=== PATIENT | male | born 1940 | race Caucasian/White ===

== ENCOUNTER → 2017-08-10 12:48 | Outpatient (CLI) | payer MEDICARE, OTHER, SELFPAY ==
[2017-08-10 13:15] LABS: 585 Gram Check PASS; Pulse 53; Zero Check Sebra Scale PASS
[2017-08-10 13:16] LABS: Amount Collected in g 585; Dizziness NO; Postdiastolic BP 65; Postsystolic BP 105; Prediastolic 65; Presystolic 124; Site of phlebotomy RIGHT AC; Swelling NO; Therapeutic Phleb Comment NO COMMENT
== END ==
PROVIDERS: PCP Family Medicine; Visit Provider Family Medicine
DX: E83.110 Hereditary hemochromatosis (principal)
CPT/HCPCS: 99195

== ENCOUNTER → 2020-06-20 13:11 | Outpatient (CLI) | payer MEDICARE, OTHER, SELFPAY ==
[2020-06-20 20:18] LABS: HEMOLYSIS < 15 (0-50); Iron 133 ug/dL (49-181)
[2020-06-20 20:31] LABS: Percent Iron Saturation 53 % (20-50); Total Iron Binding Capacity 253 ug/dL (261-462); Transferrin 209 mg/dL (206-381)
[2020-06-20 20:38] LABS: Add Manual Diff / Slide Review NO; Basophils Absolute Auto 0 /uL (0-100); Basophils Percent Auto 0.4 % (0-2); Eosinophils Absolute Auto 400 /uL (0-450); Eosinophils Percent Auto 4.8 % (2-4); Hematocrit 39.9 % (41-53); Hemoglobin 13.3 g/dL (13.5-17.5); Lymphocytes Absolute Auto 1200 /uL (1100-4500); Lymphocytes Percent Auto 15.8 % (25-40); Mean Corpuscular HGB Conc 33.2 % (30-36); Mean Corpuscular Hemoglobin 31.4 PG (26-34); Mean Corpuscular Volume 94.4 fL (80-100); Monocytes Absolute Auto 700 /uL (0-900); Monocytes Percent Auto 9.2 % (3-14); Neutrophils Absolute Auto 5100 /uL (1500-7000); Neutrophils Percent Auto 69.8 % (50-75); Platelet Count 223 X10^3/uL (150-400); Red Blood Cell Count 4.23 X10^6/uL (4.5-5.9); Red Cell Distribution Width 13.4 % (11.6-14.8); White Blood Cell Count 7.4 X10^3/uL (4.5-11.0)
[2020-06-20 20:55] LABS: Ferritin 33 ng/mL (18-464)
== END ==
PROVIDERS: PCP Family Medicine; Visit Provider Family Medicine
DX: E83.110 Hereditary hemochromatosis (principal); G47.00 Insomnia, unspecified
CPT/HCPCS: 82728; 83540; 83550; 85025

== ENCOUNTER → 2020-07-29 11:35 | Outpatient (CLI) | payer MEDICARE, OTHER, SELFPAY ==
[2020-07-29 21:14] LABS: Add Manual Diff / Slide Review NO; Basophils Absolute Auto 500 /uL (0-100); Basophils Percent Auto 6.1 % (0-2); Eosinophils Absolute Auto 500 /uL (0-450); Eosinophils Percent Auto 6.7 % (2-4); Hematocrit 42.7 % (41-53); Hemoglobin 14.3 g/dL (13.5-17.5); Lymphocytes Absolute Auto 1200 /uL (1100-4500); Lymphocytes Percent Auto 15.5 % (25-40); Mean Corpuscular HGB Conc 33.5 % (30-36); Mean Corpuscular Hemoglobin 31.6 PG (26-34); Mean Corpuscular Volume 94.3 fL (80-100); Monocytes Absolute Auto 700 /uL (0-900); Monocytes Percent Auto 8.4 % (3-14); Neutrophils Absolute Auto 5000 /uL (1500-7000); Neutrophils Percent Auto 63.3 % (50-75); Platelet Count 216 X10^3/uL (150-400); Progesterone, Total 0.48 ng/mL; Red Blood Cell Count 4.53 X10^6/uL (4.5-5.9); Red Cell Distribution Width 13.8 % (11.6-14.8); White Blood Cell Count 7.8 X10^3/uL (4.5-11.0)
[2020-07-29 21:22] LABS: Estradiol, Total 37.3 pg/mL
[2020-07-29 22:11] LABS: Alanine Aminotransferase 16 IU/L (<50); Albumin 4.1 g/dL (3.5-5.0); Albumin Globulin Ratio 1.6 (1.0-2.8); Alkaline Phosphatase 73 U/L (38-126); Aspartate Aminotransferase 25 IU/L (17-59); Bilirubin Total 0.6 mg/dL (0.2-1.3); Blood Urea Nitrogen 17 mg/dL (9-20); Calcium 9.7 mg/dL (8.4-10.2); Carbon Dioxide 29 mmol/L (22-32); Chloride 102 mmol/L (98-107); Cholesterol 176 mg/dL (140-199); Estimated Glomerular Filt Rate > 60.0 mL/min (>60); Globulin 2.6 g/dL (1.7-4.1); Glucose 105 mg/dL (80-110); HDL Cholesterol 84 mg/dL (40-60); HEMOLYSIS < 15 (0-50); LDL Cholesterol Calculated 79 mg/dL (<100); Potassium 4.6 mmol/L (3.4-5.1); Sodium 136 mmol/L (137-145); Total Protein 6.7 g/dL (6.3-8.2); Triglycerides 64 mg/dL (35-150)
[2020-07-29 22:14] LABS: High Sensitivity CRP - Cardiac < 0.3 mg/L (1.0-3.0)
[2020-07-29 22:30] LABS: Vitamin D 25 Hydroxy (D3) > 126 ng/mL (30.0-100.0)
[2020-07-29 22:31] LABS: Free T3, Triiodothyronine Free 3.65 pg/mL (2.77-5.27)
[2020-07-29 22:42] LABS: Cortisol AM (Before 10AM) 6.81 ug/dL (4.46-22.7)
[2020-07-29 22:44] LABS: Thyroid Stimulating Hormone 2.42 uIU/mL (0.47-4.68)
[2020-07-29 23:00] LABS: Vitamin B12 977 pg/mL (239-931)
[2020-07-31 04:34] LABS: Homocysteine 7.4 umol/L (0.0-19.2)
[2020-07-31 04:36] LABS: Ceruloplasmin 18.5 mg/dL (16.0-31.0)
[2020-07-31 09:13] LABS: Dehydroepiandrosterone Sulfate 67.5 ug/dL (20.8-226.4)
[2020-07-31 15:43] LABS: Selenium 148 ug/L (93-198)
[2020-07-31 17:08] LABS: Folate, RBC >1422 ng/mL (>498); Hematocrit 43.6 % (37.5-51.0); Hemolysate >620.0 ng/mL (Not Estab.)
[2020-07-31 17:59] LABS: Mercury 3.4 ug/L (0.0-14.9)
[2020-08-01 01:07] LABS: Zinc 124 ug/dL (44-115)
[2020-08-01 14:11] LABS: Vitamin B1 408.3 nmol/L (66.5-200.0)
[2020-08-02 08:11] LABS: Vitamin C 1.7 mg/dL (0.4-2.0)
[2020-08-02 12:45] LABS: Vitamin B6 119.8 ug/L (5.3-46.7)
[2020-08-02 15:56] LABS: Vascular Endothelial Growth Fa 105 pg/mL (0-115)
[2020-08-03 09:46] LABS: Testosterone % Fr + Wkly bound 11.1 % (9.0-46.0); Testosterone Fr+Wkly bound 42.4 ng/dL (40.0-250.0); Testosterone, Total 382.3 ng/dL (264.0-916.0)
[2020-08-03 23:53] LABS: Magnesium, RBC 5.4 mg/dL (4.2-6.8)
[2020-08-04 02:40] LABS: Alpha-Tocopherol 24.5 mg/L (9.0-29.0)
[2020-08-05 21:07] LABS: Pregnenolone 23 ng/dL (.)
[2020-08-07 00:51] LABS: Matrix metalloprot 9 589 ng/mL (.)
[2020-08-07 20:36] LABS: Triiodothyronine T3 Reverse 21.3 ng/dL (9.2-24.1)
== END ==
PROVIDERS: PCP Family Medicine; Visit Provider Family Medicine
DX: D89.89 Other specified disorders involving the immune mechanism, not elsewhere classified (principal); E83.110 Hereditary hemochromatosis; G47.00 Insomnia, unspecified
CPT/HCPCS: 80053; 80061; 82175; 82180; 82300; 82306; 82390; 82525; 82533; 82607; 82627; 82670; 82747; 83090; 83520; 83655; 83735; 83825; 84140; 84144; 84207; 84255; 84403; 84425; 84439; 84443; 84446; 84481; 84482; 84591; 84630; 85014; 85025; 86140

== ENCOUNTER → 2020-08-22 11:17 | Outpatient (CLI) | payer MEDICARE, OTHER, SELFPAY ==
[2020-08-22 19:44] LABS: Iron 66 ug/dL (49-181)
[2020-08-22 19:55] LABS: Percent Iron Saturation 28 % (20-50); Total Iron Binding Capacity 239 ug/dL (261-462)
[2020-08-22 20:08] LABS: Add Manual Diff / Slide Review NO; Basophils Absolute Auto 200 /uL (0-100); Eosinophils Absolute Auto 600 /uL (0-450); Eosinophils Percent Auto 6.7 % (2-4); Hematocrit 39.4 % (41-53); Hemoglobin 13.2 g/dL (13.5-17.5); Lymphocytes Absolute Auto 800 /uL (1100-4500); Lymphocytes Percent Auto 8.9 % (25-40); Mean Corpuscular HGB Conc 33.6 % (30-36); Mean Corpuscular Hemoglobin 31.5 PG (26-34); Mean Corpuscular Volume 93.6 fL (80-100); Monocytes Absolute Auto 1200 /uL (0-900); Monocytes Percent Auto 13.3 % (3-14); Neutrophils Absolute Auto 6200 /uL (1500-7000); Neutrophils Percent Auto 69.1 % (50-75); Platelet Count 257 X10^3/uL (150-400); Red Blood Cell Count 4.21 X10^6/uL (4.5-5.9); Red Cell Distribution Width 13.2 % (11.6-14.8)
[2020-08-22 20:47] LABS: Ferritin 82 ng/mL (18-464)
[2020-08-26 00:55] LABS: Zinc 134 ug/dL (44-115)
== END ==
PROVIDERS: PCP Family Medicine; Referring Provider Family Medicine; Visit Provider Family Medicine
DX: E83.110 Hereditary hemochromatosis (principal)
CPT/HCPCS: 82525; 82728; 83540; 83550; 84630; 85025

== ENCOUNTER → 2020-09-06 11:04 | Outpatient (CLI) | payer MEDICARE, OTHER, SELFPAY ==
[2020-09-06 11:49] LABS: 585 Gram Check PASS; Dizziness NO; Postdiastolic BP 73; Postsystolic BP 114; Prediastolic 73; Presystolic 136; Pulse 57; Site of phlebotomy RAC; Swelling NO; Temperature 97.3; Therapeutic Phleb Comment NO COMMENT; Zero Check Sebra Scale PASS
== END ==
PROVIDERS: PCP Family Medicine; Referring Provider Family Medicine; Visit Provider Family Medicine
DX: E83.110 Hereditary hemochromatosis (principal)
CPT/HCPCS: 99195

== ENCOUNTER → 2020-10-02 11:59 | Outpatient (CLI) | payer MEDICARE, OTHER, SELFPAY ==
[2020-10-02 19:26] LABS: HEMOLYSIS < 15 (0-50); Iron 118 ug/dL (49-181)
[2020-10-02 19:28] LABS: Alanine Aminotransferase 18 IU/L (<50); Albumin 3.7 g/dL (3.5-5.0); Albumin Globulin Ratio 1.5 (1.0-2.8); Alkaline Phosphatase 76 U/L (38-126); Aspartate Aminotransferase 27 IU/L (17-59); Bilirubin Total 0.5 mg/dL (0.2-1.3); Blood Urea Nitrogen 25 mg/dL (9-20); Calcium 9.6 mg/dL (8.4-10.2); Carbon Dioxide 27 mmol/L (22-32); Chloride 105 mmol/L (98-107); Estimated Glomerular Filt Rate > 60.0 mL/min (>60); Globulin 2.4 g/dL (1.7-4.1); Glucose 89 mg/dL (80-110); HEMOLYSIS < 15 (0-50); Potassium 4.4 mmol/L (3.4-5.1); Sodium 138 mmol/L (137-145); Total Protein 6.1 g/dL (6.3-8.2)
[2020-10-02 19:32] LABS: Add Manual Diff / Slide Review NO; Basophils Absolute Auto 100 /uL (0-100); Eosinophils Absolute Auto 300 /uL (0-450); Eosinophils Percent Auto 3.8 % (2-4); Hematocrit 35.7 % (41-53); Hemoglobin 11.8 g/dL (13.5-17.5); Lymphocytes Absolute Auto 1100 /uL (1100-4500); Lymphocytes Percent Auto 15.6 % (25-40); Mean Corpuscular Hemoglobin 31.3 PG (26-34); Mean Corpuscular Volume 95.1 fL (80-100); Monocytes Absolute Auto 700 /uL (0-900); Monocytes Percent Auto 9.3 % (3-14); Neutrophils Absolute Auto 5100 /uL (1500-7000); Neutrophils Percent Auto 70.3 % (50-75); Platelet Count 186 X10^3/uL (150-400); Red Blood Cell Count 3.75 X10^6/uL (4.5-5.9); Red Cell Distribution Width 14.2 % (11.6-14.8); White Blood Cell Count 7.3 X10^3/uL (4.5-11.0)
[2020-10-02 19:40] LABS: Percent Iron Saturation 49 % (20-50); Total Iron Binding Capacity 242 ug/dL (261-462); Transferrin 198 mg/dL (206-381)
[2020-10-02 20:02] LABS: Ferritin 60 ng/mL (18-464)
== END ==
PROVIDERS: PCP Family Medicine; Referring Provider Family Medicine; Visit Provider Family Medicine
DX: E83.110 Hereditary hemochromatosis (principal); R41.3 Other amnesia
CPT/HCPCS: 80053; 82728; 83540; 83550; 85025

== ENCOUNTER → 2020-10-22 10:54 | Outpatient (CLI) | payer MEDICARE, OTHER, SELFPAY ==
[2020-10-22 12:57] LABS: 585 Gram Check PASS; Pulse 48; Zero Check Sebra Scale PASS
[2020-10-22 12:58] LABS: Dizziness NO; Postdiastolic BP 70; Postsystolic BP 104; Prediastolic 68; Presystolic 116; Site of phlebotomy LAC; Swelling NO; Temperature 97.7; Therapeutic Phleb Comment NO COMMENT
== END ==
PROVIDERS: PCP Family Medicine; Referring Provider Family Medicine; Visit Provider Family Medicine
DX: D89.89 Other specified disorders involving the immune mechanism, not elsewhere classified (principal); D89.9 Disorder involving the immune mechanism, unspecified; E29.1 Testicular hypofunction; E83.119 Hemochromatosis, unspecified; R41.89 Other symptoms and signs involving cognitive functions and awareness; R53.83 Other fatigue; K90.9 Intestinal malabsorption, unspecified
CPT/HCPCS: 99195

== ENCOUNTER → 2020-12-04 10:15 | Outpatient (CLI) | payer MEDICARE, OTHER, SELFPAY ==
[2020-12-04 10:46] LABS: 585 Gram Check PASS; Presystolic 123; Pulse 60; Zero Check Sebra Scale PASS
[2020-12-04 10:47] LABS: Dizziness NO; Postdiastolic BP 62; Postsystolic BP 111; Prediastolic 68; Site of phlebotomy LAC; Swelling NO; Temperature 97.9; Therapeutic Phleb Comment NO COMMENT
== END ==
PROVIDERS: PCP Family Medicine; Referring Provider Family Medicine; Visit Provider Family Medicine
DX: D89.89 Other specified disorders involving the immune mechanism, not elsewhere classified (principal); D89.9 Disorder involving the immune mechanism, unspecified; E29.1 Testicular hypofunction; E83.119 Hemochromatosis, unspecified; R41.89 Other symptoms and signs involving cognitive functions and awareness; R53.83 Other fatigue
CPT/HCPCS: 99195

== ENCOUNTER → 2021-01-15 08:51 | Outpatient (CLI) | payer MEDICARE, OTHER, SELFPAY ==
[2021-01-15 19:25] LABS: HEMOLYSIS < 15 (0-50); Iron 142 ug/dL (49-181)
[2021-01-15 19:36] LABS: Percent Iron Saturation 55 % (20-50); Total Iron Binding Capacity 258 ug/dL (261-462); Transferrin 200 mg/dL (206-381)
[2021-01-15 19:44] LABS: Add Manual Diff / Slide Review NO; Basophils Absolute Auto 0 /uL (0-100); Basophils Percent Auto 0.3 % (0-2); Eosinophils Absolute Auto 200 /uL (0-450); Eosinophils Percent Auto 2.9 % (2-4); Hematocrit 42.2 % (41-53); Hemoglobin 13.8 g/dL (13.5-17.5); Lymphocytes Absolute Auto 900 /uL (1100-4500); Lymphocytes Percent Auto 13.2 % (25-40); Mean Corpuscular Hemoglobin 30.8 PG (26-34); Mean Corpuscular Volume 94.1 fL (80-100); Monocytes Absolute Auto 600 /uL (0-900); Monocytes Percent Auto 8.7 % (3-14); Neutrophils Absolute Auto 5200 /uL (1500-7000); Neutrophils Percent Auto 74.9 % (50-75); Platelet Count 235 X10^3/uL (150-400); Red Blood Cell Count 4.48 X10^6/uL (4.5-5.9); Red Cell Distribution Width 12.7 % (11.6-14.8)
[2021-01-15 19:45] LABS: Mean Corpuscular HGB Conc 32.7 % (30-36)
[2021-01-15 19:59] LABS: Ferritin 32 ng/mL (18-464)
== END ==
PROVIDERS: PCP Family Medicine; Visit Provider Family Medicine
DX: E83.110 Hereditary hemochromatosis (principal); D72.9 Disorder of white blood cells, unspecified; K58.9 Irritable bowel syndrome, unspecified; R53.83 Other fatigue; R63.0 Anorexia; R63.4 Abnormal weight loss; Z77.120 Contact with and (suspected) exposure to mold (toxic)
CPT/HCPCS: 82728; 83540; 83550; 85025

== ENCOUNTER → 2021-02-26 09:04 | Outpatient (CLI) | payer MEDICARE, OTHER, SELFPAY ==
[2021-02-26 19:27] LABS: HEMOLYSIS < 15 (0-50); Iron 132 ug/dL (49-181)
[2021-02-26 19:38] LABS: Percent Iron Saturation 49 % (20-50); Total Iron Binding Capacity 269 ug/dL (261-462); Transferrin 201 mg/dL (206-381)
[2021-02-26 20:05] LABS: Add Manual Diff / Slide Review NO; Basophils Absolute Auto 100 /uL (0-100); Basophils Percent Auto 0.7 % (0-2); Eosinophils Absolute Auto 300 /uL (0-450); Eosinophils Percent Auto 4.2 % (2-4); Hematocrit 40.7 % (41-53); Hemoglobin 13.5 g/dL (13.5-17.5); Lymphocytes Absolute Auto 1200 /uL (1100-4500); Mean Corpuscular Hemoglobin 31.4 PG (26-34); Mean Corpuscular Volume 94.3 fL (80-100); Monocytes Absolute Auto 700 /uL (0-900); Monocytes Percent Auto 10.3 % (3-14); Neutrophils Absolute Auto 4800 /uL (1500-7000); Neutrophils Percent Auto 67.8 % (50-75); Platelet Count 240 X10^3/uL (150-400); Red Blood Cell Count 4.32 X10^6/uL (4.5-5.9); Red Cell Distribution Width 13.6 % (11.6-14.8); White Blood Cell Count 7.1 X10^3/uL (4.5-11.0)
[2021-02-26 20:07] LABS: Mean Corpuscular HGB Conc 33.3 % (30-36)
[2021-02-26 20:09] LABS: Ferritin 58 ng/mL (18-464)
== END ==
PROVIDERS: PCP Family Medicine; Visit Provider Family Medicine
DX: E83.110 Hereditary hemochromatosis (principal); D72.9 Disorder of white blood cells, unspecified; R53.83 Other fatigue
CPT/HCPCS: 82728; 83540; 83550; 85025

== ENCOUNTER → 2021-06-13 13:38 | Outpatient (CLI) | payer MEDICARE, OTHER, SELFPAY ==
[2021-06-13 19:42] LABS: HEMOLYSIS < 15 (0-50); Iron 146 ug/dL (49-181)
[2021-06-13 19:56] LABS: Percent Iron Saturation 53 % (20-50); Total Iron Binding Capacity 275 ug/dL (261-462); Transferrin 211 mg/dL (206-381)
[2021-06-13 20:21] LABS: Ferritin 72 ng/mL (18-464)
[2021-06-13 21:29] LABS: Add Manual Diff / Slide Review NO; Basophils Absolute Auto 0 /uL (0-100); Basophils Percent Auto 0.4 % (0-2); Eosinophils Absolute Auto 300 /uL (0-450); Eosinophils Percent Auto 4.3 % (2-4); Hematocrit 41.1 % (41-53); Lymphocytes Absolute Auto 1100 /uL (1100-4500); Lymphocytes Percent Auto 13.7 % (25-40); Mean Corpuscular HGB Conc 34.2 % (30-36); Mean Corpuscular Hemoglobin 32.1 PG (26-34); Monocytes Absolute Auto 700 /uL (0-900); Neutrophils Absolute Auto 5500 /uL (1500-7000); Neutrophils Percent Auto 72.6 % (50-75); Platelet Count 234 X10^3/uL (150-400); Red Blood Cell Count 4.37 X10^6/uL (4.5-5.9); Red Cell Distribution Width 13.9 % (11.6-14.8); White Blood Cell Count 7.6 X10^3/uL (4.5-11.0)
== END ==
PROVIDERS: PCP Family Medicine; Referring Provider Family Medicine; Visit Provider Family Medicine
DX: E83.110 Hereditary hemochromatosis (principal); K58.9 Irritable bowel syndrome, unspecified; R53.83 Other fatigue; R63.0 Anorexia; R63.4 Abnormal weight loss; Z77.120 Contact with and (suspected) exposure to mold (toxic)
CPT/HCPCS: 82728; 83540; 83550; 85025

== ENCOUNTER → 2021-07-19 08:00 | Outpatient (CLI) | payer MEDICARE, OTHER, SELFPAY ==
[2021-07-19 08:40] LABS: Add Manual Diff / Slide Review NO; Basophils Absolute Auto 100 /uL (0-100); Basophils Percent Auto 0.8 % (0-2); Eosinophils Absolute Auto 200 /uL (0-450); Eosinophils Percent Auto 2.8 % (2-4); Hematocrit 40.3 % (41-53); Hemoglobin 13.8 g/dL (13.5-17.5); Lymphocytes Absolute Auto 800 /uL (1100-4500); Mean Corpuscular HGB Conc 34.3 % (30-36); Mean Corpuscular Hemoglobin 31.6 PG (26-34); Mean Corpuscular Volume 92.3 fL (80-100); Monocytes Absolute Auto 700 /uL (0-900); Monocytes Percent Auto 9.1 % (3-14); Neutrophils Absolute Auto 5600 /uL (1500-7000); Neutrophils Percent Auto 76.3 % (50-75); Platelet Count 234 X10^3/uL (150-400); Red Blood Cell Count 4.37 X10^6/uL (4.5-5.9); Red Cell Distribution Width 13.5 % (11.6-14.8); White Blood Cell Count 7.4 X10^3/uL (4.5-11.0)
[2021-07-19 09:05] LABS: Alanine Aminotransferase 21 IU/L (<50); Albumin 4.3 g/dL (3.5-5.0); Albumin Globulin Ratio 1.6 (1.0-2.8); Alkaline Phosphatase 70 U/L (38-126); Aspartate Aminotransferase 26 IU/L (17-59); BUN Creatinine Ratio 21.5 (6-22); Bilirubin Total 0.8 mg/dL (0.2-1.3); Blood Urea Nitrogen 23 mg/dL (9-20); Calcium 9.3 mg/dL (8.4-10.2); Carbon Dioxide 30 mmol/L (22-32); Chloride 105 mmol/L (98-107); Cholesterol 181 mg/dL (140-199); Estimated Glomerular Filt Rate > 60 mL/min (>60); Globulin 2.7 g/dL (1.7-4.1); Glucose 118 mg/dL (80-110); HDL Cholesterol 84 mg/dL (40-60); HEMOLYSIS < 15 (0-50); LDL Cholesterol Calculated 88 mg/dL (<100); Potassium 4.7 mmol/L (3.4-5.1); Sodium 139 mmol/L (137-145); Triglycerides 46 mg/dL (35-150)
[2021-07-19 10:02] LABS: HEMOLYSIS < 15 (0-50); Iron 133 ug/dL (49-181); Vitamin D 25 Hydroxy (D3) > 126 ng/mL (30.0-100.0)
[2021-07-19 10:13] LABS: Percent Iron Saturation 49 % (20-50); Total Iron Binding Capacity 269 ug/dL (261-462); Transferrin 191 mg/dL (206-381)
[2021-07-19 10:16] LABS: Ferritin 72 ng/mL (18-464)
[2021-07-26 18:25] LABS: Percent Free Testosterone 1.96 % (1.50-4.20); Testosterone Free 8.75 ng/dL (5.00-21.00); Testosterone Total 446.2 ng/dL (264.0-916.0)
== END ==
PROVIDERS: PCP Physician Assistant; Referring Provider Family Medicine; Visit Provider Family Medicine
DX: Z01.818 Encounter for other preprocedural examination (principal); Z13.6 Encounter for screening for cardiovascular disorders; H33.21 Serous retinal detachment, right eye; R41.3 Other amnesia
CPT/HCPCS: 36415; 80053; 80061; 82175; 82306; 82728; 83540; 83550; 84402; 84403; 85025; 93005

== ENCOUNTER → 2021-07-22 12:59 | Outpatient (CLI) | payer MEDICARE, OTHER, SELFPAY ==
[2021-07-23 16:36] LABS: Fecal Immunochemical Test Positive (Negative)
== END ==
PROVIDERS: PCP Physician Assistant; Visit Provider Physician Assistant
DX: Z12.11 Encounter for screening for malignant neoplasm of colon (principal)
CPT/HCPCS: 82274

== ENCOUNTER → 2021-09-04 12:23 | Outpatient (CLI) | payer MEDICARE, OTHER, SELFPAY ==
--- NOTE | 2021-09-04 12:24 | DI.MRI.S_ITS ---
PROCEDURE: MR HEAD/BRAIN WO CON INDICATIONS: cognitive changes TECHNIQUE: Non-contrast axial T1 spin echo, axial T2 fast spin echo, sagittal and axial FLAIR, coronal T2 fast spin echo, axial gradient echo, axial diffusion and ADC through the brain. COMPARISON: None. FINDINGS: Image quality: Excellent. CSF spaces: Ventricles appear symmetric in size and shape. Basal cisterns are patent. No extra-axial fluid collections. Brain: No intracranial bleeds or mass effects. There is cerebral volume loss for age. There are periventricular and deep white matter chronic small vessel ischemic changes. Brainstem appears normal. Diffusion-weighted images show no acute ischemic insults. No chronic ischemic insults. Normal intravascular flow voids are present. Skull and face: Calvarial bone marrow is normal in signal. Orbits are normal. Sinuses: Sinuses and mastoids are clear. IMPRESSION: 1. Volume loss and small vessel ischemic disease. 2. No acute process. No recent infarct. Dictated by: Phan Gonzalez M.D. on 09/04/2021 at 14:25 Approved by: Phan Gonzalez M.D. on 09/04/2021 at 14:25
== END ==
PROVIDERS: PCP Family Medicine; Referring Provider Family Medicine; Visit Provider Family Medicine
DX: R41.89 Other symptoms and signs involving cognitive functions and awareness (principal)
CPT/HCPCS: 70551

== ENCOUNTER → 2021-12-18 12:01 | Outpatient (CLI) | payer MEDICARE, OTHER, SELFPAY ==
[2021-12-18 20:08] LABS: Add Manual Diff / Slide Review NO; Basophils Absolute Auto 0 /uL (0-100); Basophils Percent Auto 0.2 % (0-2); Eosinophils Absolute Auto 300 /uL (0-450); Eosinophils Percent Auto 4.6 % (2-4); Hematocrit 39.1 % (41-53); Hemoglobin 13.1 g/dL (13.5-17.5); Lymphocytes Absolute Auto 900 /uL (1100-4500); Lymphocytes Percent Auto 12.7 % (25-40); Mean Corpuscular HGB Conc 33.5 % (30-36); Mean Corpuscular Hemoglobin 31.6 PG (26-34); Mean Corpuscular Volume 94.3 fL (80-100); Monocytes Absolute Auto 800 /uL (0-900); Monocytes Percent Auto 10.5 % (3-14); Neutrophils Absolute Auto 5300 /uL (1500-7000); Platelet Count 229 X10^3/uL (150-400); Red Blood Cell Count 4.15 X10^6/uL (4.5-5.9); Red Cell Distribution Width 12.9 % (11.6-14.8); White Blood Cell Count 7.3 X10^3/uL (4.5-11.0)
== END ==
PROVIDERS: PCP Family Medicine; Visit Provider Family Medicine
DX: E83.110 Hereditary hemochromatosis (principal)
CPT/HCPCS: 85025

== ENCOUNTER → 2022-02-06 08:47 | Outpatient (CLI) | payer MEDICARE, OTHER, SELFPAY ==
[2022-02-06 20:16] LABS: Vitamin D 25 Hydroxy (D3) > 126 ng/mL (30.0-100.0)
[2022-02-06 21:04] LABS: Hemoglobin 14.2 g/dL (13.5-17.5); Mean Corpuscular HGB Conc 33.8 % (30-36); Mean Corpuscular Hemoglobin 31.7 PG (26-34); Mean Corpuscular Volume 93.8 fL (80-100); Platelet Count 211 X10^3/uL (150-400); Red Blood Cell Count 4.48 X10^6/uL (4.5-5.9); Red Cell Distribution Width 13.2 % (11.6-14.8); White Blood Cell Count 7.3 X10^3/uL (4.5-11.0)
[2022-02-06 21:36] LABS: Add Manual Diff / Slide Review NO; Basophils Absolute Auto 0 /uL (0-100); Basophils Percent Auto 0.6 % (0-2); Eosinophils Absolute Auto 400 /uL (0-450); Eosinophils Percent Auto 5.1 % (2-4); Lymphocytes Absolute Auto 1200 /uL (1100-4500); Lymphocytes Percent Auto 16.1 % (25-40); Monocytes Absolute Auto 700 /uL (0-900); Monocytes Percent Auto 9.2 % (3-14); Neutrophils Absolute Auto 5100 /uL (1500-7000)
== END ==
PROVIDERS: PCP Family Medicine; Visit Provider Family Medicine
DX: E55.9 Vitamin D deficiency, unspecified (principal); D64.9 Anemia, unspecified; T45.2X1A Poisoning by vitamins, accidental (unintentional), initial encounter
CPT/HCPCS: 82306; 85025